=== PATIENT | female | born 1935 | race African-American/Black ===

== ENCOUNTER → 2017-08-28 | Outpatient (CLI) | payer OTHER ==
--- NOTE | 2017-08-28 14:31 | RADRPT ---
EXAM DATE/TIME: 08/28/2017 13:30 [facility] COMPARISON: No previous studies available for comparison. INDICATIONS : Paatient states no pain, told she had left renal stone. ORAL CONTRAST: No oral contrast ingested. RADIATION DOSE: 7.88 CTDIvol (mGy) MEDICAL HISTORY : None SURGICAL HISTORY : None. ENCOUNTER: Initial ACUITY: 1 day PAIN SCALE: 0/10 LOCATION: Left flank TECHNIQUE: Volumetric scanning of the abdomen and pelvis was performed. Using automated exposure control and ad justment of the mA and/or kV according to patient size, radiation dose was kept as low as reasonably achievable to obtain optimal diagnostic quality images. DICOM format image data is available electro nically for review and comparison. FINDINGS: LOWER LUNGS: The visualized lower lungs are clear. LIVER: Homogeneous density without solid lesion. 2.1 cm cyst is identified in the left hepatic lobe. There is no dilation of the biliary tree. A single small 3 mm calcification is identified in the zacarias hepa tis. SPLEEN: Normal size without lesion. PANCREAS: Within normal limits. KIDNEYS: 3 and 3.5 mm calculi appear to be present within the left ureter however there is no significant hydr oureter or hydronephrosis. Left kidney is otherwise unremarkable. Right kidney contains a 6.5 cm cyst projecting off its lateral upper pole cortical margin. Kidneys otherwise otherwise unremarkable. ADRENAL GLANDS: Within normal limits. VASCULAR: There is no aortic aneurysm. BOWEL/MESENTERY: The stomach, small bowel, and colon demonstrate no acute abnormality. There is no free intraperitone al air or fluid. ABDOMINAL WALL: Within normal limits. RETROPERITONEUM: There is no lymphadenopathy. BLADDER: No wall thickening or mass. REPRODUCTIVE: Small calcific deposits are identified in the myometrium of the uterus. No adnexal masses or cyst. Th ere are no abnormal fluid collections. INGUINAL: There is no lymphadenopathy or hernia. MUSCULOSKELETAL: Within normal limits for patient age. CONCLUSION: 1. 3 and 3.5 mm calculi identified along the course of left ureter and may represent ureteral lithias is. There is no evidence of hydronephrosis. 2. Small calcific deposit in the zacarias hepatis which may represent a stone within the cystic duct or proximal common bile duct. There is no evidence of biliary duct dilatation. 3. Simple hepatic and right renal cysts. 4. Myometrial calcification characteristic of leiomyomatous change within the uterus. Fernie Simeon MD on August 28, 2017 at 14:20 Board Certified Radiologist. This report was verified electronically.
== END ==
LOC: HRAD 13:08
PROVIDERS: ATTEND Urology
DX: N20.1 Calculus of ureter (principal)
CPT/HCPCS: 74176

== ENCOUNTER → 2017-10-24 | Outpatient (CLI) | payer OTHER ==
--- NOTE | 2017-10-24 11:32 | RADRPT ---
EXAM DATE/TIME: 10/24/2017 11:03 [facility] COMPARISON: CT ABDOMEN & PELVIS W/O CONTRAST, August 28, 2017, 13:30. INDICATIONS : Patient states history renal stone. MEDICAL HISTORY : Renal calculi. SURGICAL HISTORY : Tubal ligation. colectomy ENCOUNTER: Initial ACUITY: 3 weeks PAIN SCORE: 0/10 LOCATION: upper quadrant FINDINGS: Supine view of the abdomen was performed. The abdominal bowel gas pattern is normal. No abnormal ma sses, calcifications, or organomegaly is seen. The osseous structures are unremarkable. There is a 3 mm stone in the distal left ureter similar to the CT scan. There are calcifications in the pelvis co nsistent with phleboliths. Degenerative changes present at the lumbosacral junction. 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 CONCLUSION: 1. 3 mm stone in the mid left ureter unchanged from the prior CT scan. Amos Miller MD on October 24, 2017 at 11:28 Board Certified Radiologist. This report was verified electronically.
== END ==
LOC: HRAD 10:39
PROVIDERS: ATTEND Urology
DX: N20.0 Calculus of kidney (principal)
CPT/HCPCS: 74018